=== PATIENT | male | born 1970 | race African-American/Black ===

== ENCOUNTER 2018-08-28 00:04 | Emergency (ER) | payer SELFPAY ==
[~2018-08-28] VITALS: Ht 167.6 cm; Wt 113.4 kg
--- NOTE | ~2018-08-28 | EKG ---
[place], [place] ELECTROCARDIOGRAM REPORT NAME: KIT VASQUEZ UNIT #: [id number] ROOM: DOCTOR: EPIPHANY DRAFT REPORT BIRTHDATE: [birth year] [facility] Test Date: 2018-08-28 Test Time: 00:25:22 Pat Name: KIT VASQUEZ Department: Room: Gender: M Sighter: Irineo Mays : 1970 Requested By: AXEL GARCIA Order Number: [id number] Reading MD: Marion Young MD Measurements Intervals [place] Rate: 87 P: 70 SC: 217 QRS: 164 QRSD: 101 T: 55 QT: 369 QTc: 444 Interpretive Statements Sinus rhythm Prolonged SC interval Anteroseptal infarct, old Electronically Signed On 08-28-2018 7:15:15 PST by Marion Young MD CM:EKGRPT:ELECTROCARDIOGRAM REPORT 0025 [id number] AXEL CASTLE DRAFT REPORT AXEL GARCIA DO
[~2018-08-28 00:04] MED LIST: AUGMENTIN 875-875 MG PO; PREDNISONE10 MG PO; VENTOLIN H0.09 MG/AC INH
[2018-08-28 00:47] LABS: BASO % 0.4 % (0.0-1.0); EOS # 0.5 10*3/uL (0.0-0.4); EOS % 4.2 % (1.0-4.0); HEMATOCRIT 44.4 % (42.0-52.0); HEMOGLOBIN 14.9 g/dl (14.0-18.0); LYMPH # 2.8 10*3/uL (1.3-4.4); LYMPH % 25.3 % (27.0-41.0); MEAN CELL VOLUME 87.9 fl (80.0-94.0); MEAN CORPUSCULAR HGB 29.5 pg (27.0-31.0); MEAN CORPUSCULAR HGB CONC 33.6 g/dl (33.0-37.0); MEAN PLATELET VOLUME 9.5 fl (9.6-12.3); MONO # 0.7 10*3/uL (0.1-1.0); MONO % 6.1 % (3.0-9.0); NEUT # 7.1 10*3/uL (2.3-7.9); NEUT % 63.5 % (47.0-73.0); PLATELET COUNT AUTOMATED 281 10*3/uL (130-400); RED BLOOD COUNT 5.05 10*6/uL (4.50-5.90); RED CELL DISTRI WIDTH 13.6 % (0-14.5); WHITE BLOOD COUNT 11.2 10*3/uL (4.8-10.8)
[2018-08-28 01:03] LABS: ALBUMIN 3.4 gm/dl (3.1-4.5); ALKALINE PHOSPHATASE 105 U/L (45-117); BUN 17 mg/dl (7-24); CHLORIDE 97 mmol/L (98-107); CREATININE 1.09 mg/dL (0.70-1.30); POTASSIUM 3.8 mmol/L (3.5-5.1); SGOT/AST 20 IU/L (3-35); SGPT/ALT 25 U/L (12-78); SODIUM 135 mmol/L (136-145)
[2018-08-28 01:07] LABS: TROPONIN I < 0.015 ng/ml (<0.045)
[2018-08-28] MEDS ORDERED: PREDNISONE50 MG PO (01:15)
[2018-08-28] MEDS ORDERED: AVPAK AZITHROM250 M1 PO (01:15)
== END 2018-08-28 01:31 | disposition home or self-care (01) ==
LOC: ED 00:04
PROVIDERS: Student in an Organized Health Care Education/Training Program
DX: J45.901 Unspecified asthma with (acute) exacerbation (principal); F17.200 Nicotine dependence, unspecified, uncomplicated; Z79.2 Long term (current) use of antibiotics; Z79.899 Other long term (current) drug therapy

== ENCOUNTER → 2018-09-24 | Outpatient (CLI) | payer SELFPAY ==
[~2018-09-24] MED LIST changes: +AVPAK AZITHROM250 M1 PO; +HYDR25T PO; +PREDNISONE50 MG PO
== END | disposition home or self-care (01) ==
LOC: RESCLI 10:28
DX: J45.909 Unspecified asthma, uncomplicated (principal); E66.01 Morbid (severe) obesity due to excess calories; Z88.8 Allergy status to other drugs, medicaments and biological substances; Z79.899 Other long term (current) drug therapy; Z76.89 Persons encountering health services in other specified circumstances

== ENCOUNTER 2019-10-07 14:32 | Emergency (ER) | payer SELFPAY ==
[~2019-10-07] VITALS: Ht 167.6 cm; Wt 127.0 kg
[~2019-10-07 14:32] MED LIST changes: -ZESTORETIC 20-1 EAC1 PO
[2019-10-07] MEDS ORDERED: ZESTORETIC 20-1 EAC1 PO (17:31)
== END 2019-10-07 17:51 | disposition home or self-care (01) ==
LOC: ED 14:32
DX: I10 Essential (primary) hypertension (principal); J45.909 Unspecified asthma, uncomplicated; F17.200 Nicotine dependence, unspecified, uncomplicated

== ENCOUNTER → 2019-10-07 | Outpatient (CLI) | payer SELFPAY ==
[~2019-10-07] MED LIST changes: +ZESTORETIC 20-1 EAC1 PO
== END | disposition home or self-care (01) ==
LOC: RESCLI 01:12
DX: I16.0 Hypertensive urgency (principal); I10 Essential (primary) hypertension; E66.01 Morbid (severe) obesity due to excess calories; J45.909 Unspecified asthma, uncomplicated